=== PATIENT | female | born 1990 | race Caucasian/White ===

== ENCOUNTER 2017-04-24 15:41 | Observation (INO) | payer MEDICAID ==
[2017-04-24 16:01] LABS: URINE MUCUS NONE SEEN (Up to 25%); URINE RBC NONE SEEN (0-5/hpf); URINE WBC NONE SEEN (0-4/hpf)
[2017-04-24 16:02] LABS: BASOPHILS 0.3 % (0.0-2.0); EOSINOPHILS 0.4 % (0.0-6.0); HEMATOCRIT 33.4 % (36.0-48.0); LYMPHOCYTES 22.7 % (20.0-40.0); LYMPHOCYTES# 2.2 X 10^3uL (0.8-3.8); MEAN CELL VOLUME 86.6 fL (80.0-100.0); MEAN CORPUS. HGB CONCENTRATION 32.9 g/dL (32.0-36.0); MEAN CORPUSCULAR HEMOGLOBIN 28.5 pg (29.0-35.0); MEAN PLATELET VOLUME 8.1 fL (7.4-10.4); MONOCYTES 6.6 % (2.0-10.0); MONOCYTES# 0.6 X 10^3uL (0.2-1.0); NEUTROPHILS# 6.7 X 10^3uL (2.6-6.7); PLATELET COUNT 177 X 10^3uL (130-440); RED BLOOD COUNT 3.86 X 10^6uL (4.20-6.10); RED CELL DISTRIBUTION WIDTH 12.3 % (11.5-14.5); WHITE BLOOD COUNT 9.5 X 10^3uL (3.9-10.7)
[2017-04-24 16:09] LABS: URINE APPEARANCE SLIGHTLY CLOUDY; URINE COLOR YELLOW; URINE GLUCOSE NORMAL (NEGATIVE); URINE LEUKOCYTE ESTERASE NEGATIVE (NEGATIVE); URINE NITRITE NEGATIVE (NEGATIVE); URINE PROTEIN NEGATIVE (NEG - TRACE); URINE SPECIFIC GRAVITY < or = 1.005 (0.001-1.035)
[2017-04-24 16:10] LABS: URINE BILIRUBIN NEGATIVE (NEGATIVE); URINE BLOOD TRACE (NEGATIVE); URINE KETONE NEGATIVE (NEGATIVE); URINE SQUAMOUS EPITHELIAL CELL 0-5/hpf (<= 15/hpf); URINE UROBILINOGEN 0.2mg/dL (Normal) (NEG-1mg/dL)
[2017-04-24 16:12] LABS: ALKALINE PHOSPHATASE 102 U/L (38-126); ALT 36 U/L (9-52); AST 27 U/L (14-36); BILIRUBIN, TOTAL 0.4 mg/dL (0.2-1.3); BLOOD UREA NITROGEN 11 mg/dL (7-17); CALCIUM 8.7 mg/dL (8.4-10.2); CHLORIDE 109 mmol/L (98-107); EST GLOMERULAR FILTRATION RATE > 60 mL/min; GLUCOSE 155 mg/dL (70-100); SODIUM 134 mmol/L (137-145); URIC ACID 4.5 mg/dL (2.5-6.2)
[2017-04-24 16:27] LABS: INR 0.9; PARTIAL THROMBOPLASTIN TIME 25 sec (24-38)
[2017-04-24] MEDS ORDERED: ACETAMINOPHEN 325 MG TABLET PO PRN (17:29)
[2017-04-24] MEDS ORDERED: HOME MEDICATION LIST NEEDED 1 EA EACH MC ONE (17:29)
[2017-04-24] MEDS: BETAMET ACET/BETAMET NA PH 30 MG/5 ML VIAL IM SCH (17:46)
[2017-04-24] MEDS ORDERED: HOME MEDICATION LIST NEEDED 1 EA EACH MISC ONE (18:00)
[2017-04-25 06:21] LABS: BASOPHILS 0.1 % (0.0-2.0); MEAN CORPUSCULAR HEMOGLOBIN 28.9 pg (29.0-35.0)
[2017-04-25 06:34] LABS: EOSINOPHILS 0.1 % (0.0-6.0); HEMATOCRIT 34.2 % (36.0-48.0); HEMOGLOBIN 11.5 g/dL (12.0-16.0); LYMPHOCYTES# 1.7 X 10^3uL (0.8-3.8); MEAN CORPUS. HGB CONCENTRATION 33.7 g/dL (32.0-36.0); MEAN PLATELET VOLUME 9.7 fL (7.4-10.4); MONOCYTES 1.9 % (2.0-10.0); MONOCYTES# 0.3 X 10^3uL (0.2-1.0); RED BLOOD COUNT 3.98 X 10^6uL (4.20-6.10); RED CELL DISTRIBUTION WIDTH 12.2 % (11.5-14.5)
[2017-04-25 06:35] LABS: ALBUMIN 2.9 g/dL (3.5-5.0); BILIRUBIN, TOTAL 0.5 mg/dL (0.2-1.3)
[2017-04-25 06:57] LABS: NEUTROPHILS 85.9 % (54.0-75.0)
--- NOTE | 2017-04-25 08:05 | PROGRESS NOTE:Antepartum ---
Assessment and Plan - Date of Encounter Date of Encounter: 04/25/17 (1) Pre-eclampsia during in third trimester, antepartum Status: Acute Assessment and plan: BP improved with bedrest. Labs ok. Ultrasound for growth today. Complete steroid course later today. Current Visit: Yes - Time Spent With Patient Total time spent with greater than 50% in coordination of care (as documented) at patient's floor/unit and/or counseling patient: CLOTHING PATTERNMAKER: Antepartum PN Subj - Subjective Interval history: Rested overnight. No complaints this morning. Patient reports: appetite normal, voiding normally, no nausea Antepartum ROS: movement normal, swelling, no vaginal bleeding, no contractions, no loss of fluid, no abdominal pain, no headache, no shortness of breath, no visual changes CLOTHING PATTERNMAKER: Antepartum PN Obj Exam - Latest Vital Signs and I&O Latest Vital Signs/I&O: Vital Signs Temp 36.4 C L 04/25/17 06:30 Pulse 75 04/25/17 06:30 Resp 18 04/25/17 06:30 BP 140/70 04/25/17 06:30 Pulse Ox 95 04/25/17 06:30 Intake & Output 04/24/17 04/25/17 04/25/17 17:59 05:59 17:59 Intake Total 3000 5 Output Total 2650 400 Balance 350 -395 Weight 133.81 kg 132.449 kg Intake: IV 5 Left Hand 5 Oral 3000 Output: Urine 2650 400 Other: Urine Appearance Clear Clear Clear Urine Color Pale Yellow Yellow Yellow Voiding Method Toilet Toilet Toilet # Voids 1 - Exam Lungs: Bilateral: normal Heart Rhythm: Present: regular Extremities: Present: edema. Absent: tenderness Abdomen: Present: soft. Absent: tenderness - Lab Labs: Laboratory Last Values WBC 14.0 X 10^3uL (3.9-10.7) H 04/25/17 06:05 RBC 3.98 X 10^6uL (4.20-6.10) L 04/25/17 06:05 Hgb 11.5 g/dL (12.0-16.0) L 04/25/17 06:05 Hct 34.2 % (36.0-48.0) L 04/25/17 06:05 MCV 86.0 fL (80.0-100.0) 04/25/17 06:05 MCH 28.9 pg (29.0-35.0) L 04/25/17 06:05 MCHC 33.7 g/dL (32.0-36.0) 04/25/17 06:05 RDW 12.2 % (11.5-14.5) 04/25/17 06:05 Plt Count 186 X 10^3uL (130-440) 04/25/17 06:05 MPV 9.7 fL (7.4-10.4) 04/25/17 06:05 Neutrophils % 85.9 % (54.0-75.0) H 04/25/17 06:05 Lymphocytes % 12.0 % (20.0-40.0) L 04/25/17 06:05 Eosinophils % 0.1 % (0.0-6.0) 04/25/17 06:05 Basophils % 0.1 % (0.0-2.0) 04/25/17 06:05 Neutrophils # 12.0 X 10^3uL (2.6-6.7) H 04/25/17 06:05 Lymphocytes # 1.7 X 10^3uL (0.8-3.8) 04/25/17 06:05 Monocytes 1.9 % (2.0-10.0) L 04/25/17 06:05 Monocytes # 0.3 X 10^3uL (0.2-1.0) 04/25/17 06:05 Eosinophils # 0.0 X 10^3uL (0.0-0.4) 04/25/17 06:05 Basophils # 0.0 X 10^3uL (0.0-0.1) 04/25/17 06:05 PT 12.0 sec (13.0-16.6) L 04/24/17 15:45 INR 0.9 04/24/17 15:45 PTT 25 sec (24-38) 04/24/17 15:45 Sodium 134 mmol/L (137-145) L 04/24/17 15:45 Potassium 4.0 mmol/L (3.5-5.1) 04/24/17 15:45 Chloride 109 mmol/L (98-107) H 04/24/17 15:45 Carbon Dioxide 21 mmol/L (22-30) L 04/24/17 15:45 BUN 11 mg/dL (7-17) 04/24/17 15:45 Creatinine 0.6 mg/dL (0.5-1.0) 04/24/17 15:45 GFR Calculation > 60 mL/min 04/24/17 15:45 Glucose 155 mg/dL (70-100) H 04/24/17 15:45 Uric Acid 4.5 mg/dL (2.5-6.2) 04/24/17 15:45 Calcium 8.7 mg/dL (8.4-10.2) 04/24/17 15:45 Total Bilirubin 0.5 mg/dL (0.2-1.3) 04/25/17 06:05 Direct Bilirubin 0.0 mg/dL (0.0-0.4) 04/25/17 06:05 AST 29 U/L (14-36) 04/25/17 06:05 ALT 34 U/L (9-52) 04/25/17 06:05 Alkaline Phosphatase 104 U/L (38-126) 04/25/17 06:05 Total Protein 6.0 g/dL (6.3-8.2) L 04/25/17 06:05 Albumin 2.9 g/dL (3.5-5.0) L 04/25/17 06:05 Albumin/Globulin Ratio 1.0 04/24/17 15:45 Urine Color Yellow 04/24/17 15:45 Urine Appearance Slightly cloudy 04/24/17 15:45 Urine pH 6.0 (5-7) 04/24/17 15:45 Ur Specific [place] < or = 1.005 (0.001-1.035) 04/24/17 15:45 Urine Protein 26 mg/dL (<12) H 04/24/17 15:45 Urine Ketones Negative (NEGATIVE) 04/24/17 15:45 Urine Blood Trace (NEGATIVE) A 04/24/17 15:45 Urine Nitrate Negative (NEGATIVE) 04/24/17 15:45 Urine Bilirubin Negative (NEGATIVE) 04/24/17 15:45 Urine Urobilinogen 0.2mg/dl (normal) (NEG-1mg/dL) 04/24/17 15:45 Ur Leukocyte Esterase Negative (NEGATIVE) 04/24/17 15:45 Urine RBC None seen (0-5/hpf) 04/24/17 15:45 Urine WBC None seen (0-4/hpf) 04/24/17 15:45 Ur Squamous Epith Cells 0-5/hpf (<= 15/hpf) 04/24/17 15:45 Urine Bacteria 10-20 organisms/hpf (<10/hpf) A 04/24/17 15:45 Urine Mucus None seen (Up to 25%) 04/24/17 15:45 Urine Creatinine 14.3 mg/dL 04/24/17 15:45 Urine Glucose Normal (NEGATIVE) 04/24/17 15:45
[2017-04-25] MEDS ORDERED: PRENATAL VIT/FE FUMARATE/FA 1 TAB TABLET PO SCH (09:00)
[2017-04-25] MEDS ORDERED: VALACYCLOVIR 500 MG TABLET PO SCH (09:00)
--- NOTE | 2017-04-25 11:08 | HISTORY & PHYSICAL ---
History of Present Illness (Amandeep Jane M.D.; 04/24/2017 5:46 PM) The patient is a 26 year old female who presents to labor and delivery. She presents for evaluation of: swelling and elevated BP in the office today. The estimated gestational is 33 week. Estimated date of delivery is Date: (06/11/2017 ). This has been complicated by herpes genitalis (no outbreaks, on chronic acyclovir suppression) and obesity. The patient has complaints of edema - upper extremities and edema - lower extremities, while she denies abdominal pain, altered vision, nausea or vomiting. She denies vaginal bleeding. Urinary problems include: frequency. Habits: No tobacco, alcohol or illicit drugs since diagnosis of . Problem List/Past Medical (Amandeep Jane M.D.; 04/24/2017 5:47 PM) Genital herpes in women (A60.09) Migraine without aura and without status migrainosus, not intractable (G43.009) Allergies (Amandeep Jane M.D.; 04/24/2017 5:47 PM) No Known Drug Todatglzs16/09/2017 Family History (Amandeep Jane M.D.; 04/24/2017 5:47 PM) Alcohol Abuse Mother, Father. Cerebrovascular Accident Mother, Maternal Grandmother, Maternal Uncle. Crohn's Disease Maternal Uncle. Diabetes Mellitus Type II Father. Substance Abuse Mother, Father. Thyroid Cancer Mother. Social History (Amandeep Jane M.D.; 04/24/2017 5:47 PM) Alcohol use None. No Drug Use Tobacco use Never smoker. Medication History (Amandeep Jane M.D.; 04/24/2017 5:47 PM) Acyclovir (200MG Capsule, 1 Oral two times daily, Taken starting 03/26/2017) Active. /Folic Acid (Oral daily) Active. Medications Reconciled / History (Natalie Garza RN; 04/24/2017 3:16 PM) 1. Father of baby (1st) Jalen Brown. Past Surgical History (Amandeep Jane M.D.; 04/24/2017 5:47 PM) Arthroscopy of Shoulder Right. Review of Systems (Amandeep Jane M.D.; 04/24/2017 5:47 PM) General Not Present- Fever. Skin Not Present- Rash. HEENT Present- Headache (mild). Not Present- Bleeding Gums and Blurred Vision. Neck Not Present- Neck Stiffness. Respiratory Not Present- Difficulty Breathing. Breast Not Present- Breast Mass. Cardiovascular Not Present- Chest Pain, Fainting / Blacking Out and Shortness of Breath. Gastrointestinal Not Present- Abdominal Pain, Constipation, Nausea and Vomiting. Female Genitourinary Present- Contractions, regular, Movements Present and Frequency. Not Present- Painful Urination, Vaginal Bleeding and Vaginal Fluid. Musculoskeletal Not Present- Back Pain and Leg Cramps. Neurological Not Present- Dizziness. Psychiatric Not Present- Depression. Hematology Not Present- Bleeding Problems and DVT. Vitals (Natalie Garza RN; 04/24/2017 3:16 PM) 04/24/2017 3:16 PM BP: 160/88 (Sitting, Left Arm, Undefined) 04/24/2017 3:02 PM Weight: 295 lb LMP: 09/04/2016 BP: 160/98 (Sitting, Left Arm, Standard) Physical Exam (Amandepe Jane M.D.; 04/24/2017 5:49 PM) General General Appearance-Well Appearing and Not in acute distress. Build & Nutrition-Morbidly obese. Integumentary Integumentary General Characteristics Overall examination of the patient's skin reveals - no rashes. Head and Neck Neck Global Assessment - full range of motion, No lymphadenopathy. Thyroid Gland Characteristics - normal size and consistency and no palpable nodules. Eye Sclera/Conjunctiva - Bilateral-No Yellow. ENMT Mouth and Throat Oral Cavity/Oropharynx - Oropharynx - no evidence of airway distress observed. Chest and Lung Exam Chest and lung exam reveals -Clear and quiet, even and easy respiratory effort with no use of accessory muscles. Cardiovascular Cardiovascular examination reveals -normal heart sounds, regular rate and rhythm with no murmurs. Abdomen Inspection Inspection of the abdomen reveals - No Hernias. Contour - . Palpation/Percussion Palpation and Percussion of the abdomen reveal - Non Tender, No hepatosplenomegaly and No Palpable abdominal masses. Other Characteristics - No Costovertebral angle tenderness - Left, No Costovertebral angle tenderness - Right. Female Genitourinary Speculum & Bimanual Uterus - Characteristics - Gravid, Non Tender. Obstetric Exam Heart Tones - Present by doptone. Peripheral Vascular Lower Extremity Palpation - Tenderness - Bilateral - Non Tender. Edema - Bilateral - 3+ Pitting edema. Neurologic General Assessment of Reflexes Right Knee - 3+. Left Knee - 3+. Neuropsychiatric Mental status exam performed with findings of-Oriented X3 with appropriate mood and affect. Lymphatic Axillary Supraclavicular Nodes: Bilateral - Supraclavicular Lymph Nodes - No supraclavicular lymphadenopathy. Assessment & Plan (Amandeep Jane M.D.; 04/24/2017 5:54 PM) Preeclampsia, third trimester (O14.93) Impression: UPC 1.8 but creatinine only 14mg/dl. Labs ok. Does not meet severe criteria by BP. Discussed increased risks associated with preeclampsia and possible need for indicated delivery if she develops severe features. Will admit now for further BP monitoring, repeat labs in am, ultrasound for growth, steroids for pulmonary maturity. Understands that if delivery indicated will transfer to facility with Level III nursery. Questions answered in depth. Current Plans NON-STRESS TEST (32644) CBC, PLATELETS & AUT DIFF (23791) URIC ACID BLOOD (74965) METABOLIC PANEL, COMPREHENSIVE (55747) PTT (ACTIVATED PARTIAL THROMBOPLASTIN TIME) (49019) PT (PROTHROMBIN TIME) (79483) UA w/micro (56302) PROTEIN, URINE (87746) CREATININE, URINE (23572) Obesity during in third trimester (O99.213) Current Plans ROUTINE OBSTETRIC CARE (56253) UA Dip - OB (65045) Follow up in 2 weeks or as needed Herpes simplex infection in , first trimester (O98.511) Impression: Doing well on chronic suppression therapy. Signed by Amandeep Jane M.D. (04/24/2017 5:55 PM) NANCY
--- NOTE | 2017-04-25 11:50 | US REPORT ---
Examination demonstrates a single viable intrauterine with body , cardiac and respiratory motion identified. The biparietal diameter measures 8.5 cm. The head circumference measures 30.8 cm. The abdominal circumference measures 29.4 cm. The femur length measures 6.5 cm. These measurements indicate a gestational age of 33 weeks and 3 days with an estimated date of delivery of June 10, 2017. Estimated weight is 2225 grams. The placenta is anterior without evidence of previa The amniotic fluid is within normal limits with an index of 15.2 cm. The cervix measures 4.8 cm in length. biophysical profile is normal for all variables with a score of 10/10. IMPRESSION: 1. Single viable intrauterine with an estimated gestational age of 33 weeks and 3 days. 2. Normal biophysical profile. [facility]
[2017-04-25] MEDS ORDERED: ONDANSETRON HCL 4 MG/2 ML VIAL IV PRN (15:37)
[2017-04-25] MEDS ORDERED: CALCIUM GLUCONATE IV PRN (15:37)
[2017-04-25] MEDS ORDERED: MAGNESIUM SULFATE 1,000 ML IV SCH (15:45)
[2017-04-25] MEDS ORDERED: MAGNESIUM SULFATE 4 GM/100 ML BAG IV ONE (15:46)
[2017-04-25] MEDS ORDERED: CALCIUM GLUCONATE IV ONE (15:48)
[2017-04-25] MEDS ORDERED: LACTATED RINGERS 1,000 ML IV ONE (15:51)
[2017-04-25] MEDS ORDERED: LACTATED RINGERS 1,000 ML IV SCH (16:00)
--- NOTE | 2017-04-25 16:05 | DC SUMMARY: Obstetrical/GYN ---
Discharge Summary: Surg/OB Provider: Date of Admission: 04/24/17 Admitting Provider: TOM BREWSTER MD Attending Provider: TOM BREWSTER MD Discharging Provider: TOM BREWSTER MD Primary Care Provider: Discharge Date: 04/25/17 - Diagnosis (1) Pre-eclampsia during in third trimester, antepartum Status: Acute Hospital Course: Ms. INIGUEZ is a 26 year old female admitted on Saturday for evaluation of hypertension in . Her BP's improved with bedrest but today she has had persistently elevated pressures and now meets severe criteria based on systolic BP>160 on in hospital bedrest. Ultrasound this morning revealed normal growth, Amniotic fluid and BPP 10/10. She has no headache or scotomata and her labs show no evidence of HELLP syndrome. Due to her gestational age she was begun on steroids yesterday on admission. Due to worsening HTN and gestational age recommend transfer to facility with Level III nursery. Patient understands and agrees. Case discussed with Dr. Mandy Crain at [facility] and she agrees to accept patient. Discharge - Patient/Caregiver Discharge Instructions Activity Level: Bedrest Overall discharge status: other (Gaurded) Disposition: [facility] Obstetrical/WATCH CRYSTAL GRINDER Discharge Exam - Latest Vital Signs and I&O Latest Vital Signs/I&O: Vital Signs Temp 36.6 C 04/25/17 10:45 Pulse 80 04/25/17 14:46 Resp 18 04/25/17 10:45 BP 177/81 04/25/17 14:46 Pulse Ox 97 04/25/17 10:52 Intake & Output 04/24/17 04/25/17 04/25/17 17:59 05:59 17:59 Intake Total 3000 1205 Output Total 2650 1999 Balance 350 -795 Weight 133.81 kg 132.449 kg Intake: IV 5 Left Hand 5 Oral 3000 1200 Output: Urine 2650 1999 Other: Urine Appearance Clear Clear Clear Urine Color Pale Yellow Yellow Yellow Voiding Method Toilet Toilet Toilet # Voids 1 - Exam Heart Monitor: category I Lungs: Bilateral: normal Heart Rhythm: Present: regular Extremities: Present: edema. Absent: tenderness Abdomen: Present: soft. Absent: tenderness Discharge Summary Data - Medication History Medication History: Home Medications Acyclovir [Acyclovir*] 200 mg PO BID 04/25/17 Prena1 Chew Tablet 1 tab PO BID 04/25/17 aspirin EC [Aspirin EC*] 81 mg PO DAILY 04/25/17 Inpatient Medications 04/24/17 17:29 Acetaminophen [Tylenol] 650 mg PO Q6H PRN 04/24/17 18:00 Betamet Acet/Betamet Na pH [Celestone] 12 mg IM Q24H 04/25/17 09:00 Vit/Fe Fumarate/FA [ Rx 1] 1 tab PO DAILY Valacyclovir [Valtrex] 500 mg PO DAILY 04/25/17 15:37 Calcium Gluconate 10% [Calcium Gluconate 1000 mg] 1,000 mg IV PRN PRN Ondansetron HCl [Zofran] 4 mg IV Q4H PRN 04/25/17 15:45 Magnesium Sulfate [Magnesium Sulfate 40Gm/1000ML] 1,000 ml IV CONT 04/25/17 16:00 Lactated Ringers [Lr 1000 ml Bag] 1,000 ml IV CONT Procedures and tests throughout hospitalization: Completed Lab Orders 04/24/17 15:45 CBC AUTO DIF, MDIF/RMOR IF IND [HEM] Stat COMPREHENSIVE METABOLIC PANEL [CHEM] Stat PARTIAL THROMBOPLASTIN TIME [HEM] Stat PROTIME/INR [HEM] Stat UA W/ MICRO -CULTURE IF IND [URINE] Stat URIC ACID [CHEM] Stat URINE CREATININE,RANDOM [CHEM] Stat URINE PROTEIN,RANDOM [CHEM] Stat 04/25/17 06:05 CBC AUTO DIF, MDIF/RMOR IF IND [HEM] AMDRAW HEPATIC PANEL [CHEM] AMDRAW Completed Imaging Orders 04/25/17 17:30 US BIOPHY PROFW/[id number] [US] Routine US OB FOLLOW-UP [id number] [US] Routine Pending Orders 04/24/17 15:45 URINE CULTURE [RM] Routine 04/24/17 17:29 Admit: Observation Routine Activity: Bathroom Privileges . Assess pulse oximetry ROOM AIR (DAILY) Intake and Output QSHIFT I&O Obtain weight 0600 Resuscitation Status Routine Vital Signs ROUTINE VITALS (Q4H) Acetaminophen [Tylenol] 650 mg PO Q6H PRN 04/24/17 17:32 Urine dipstick for protein q4h Q4H 04/24/17 17:33 Monitor PER PROTOCOL 04/24/17 18:00 Betamet Acet/Betamet Na pH [Celestone] 12 mg IM Q24H 04/24/17 Dinner Regular [DIET] 04/25/17 09:00 Vit/Fe Fumarate/FA [ Rx 1] 1 tab PO DAILY Valacyclovir [Valtrex] 500 mg PO DAILY 04/25/17 15:37 Activity: Bedrest with BRP CONTINUOUS Assess deep tendon reflexes Q1H CBC, CMP 12h after admit if un . Decrease sensory input . Insert Pires Catheter ONCE Intake and Output Q1H Mag level 4h after bolus, q6h . [facility] Maternal Vital Signs PER PROTOCOL Notify Physician . Obtain weight 2100 Sips and Chips . Urine dipstick for protein q4h Q4H Calcium Gluconate 10% [Calcium Gluconate 1000 mg] 1,000 mg IV PRN PRN Ondansetron HCl [Zofran] 4 mg IV Q4H PRN 04/25/17 15:45 Magnesium Sulfate [Magnesium Sulfate 40Gm/1000ML] 1,000 ml IV CONT 04/25/17 16:00 Lactated Ringers [Lr 1000 ml Bag] 1,000 ml IV CONT 04/25/17 Dinner Nothing By Mouth [DIET] Labs on day of discharge: Labs from last 24 hours 04/25/17 04/24/17 04/24/17 06:05 15:45 15:45 WBC 14.0 H RBC 3.98 L Hgb 11.5 L Hct 34.2 L MCV 86.0 MCH 28.9 L MCHC 33.7 RDW 12.2 Plt Count 186 MPV 9.7 Neutrophils % 85.9 H Lymphocytes % 12.0 L Eosinophils % 0.1 Basophils % 0.1 Neutrophils # 12.0 H Lymphocytes # 1.7 Monocytes 1.9 L Monocytes # 0.3 Eosinophils # 0.0 Basophils # 0.0 PT INR PTT Sodium Potassium Chloride Carbon Dioxide BUN Creatinine GFR Calculation Glucose Uric Acid Calcium Total Bilirubin 0.5 Direct Bilirubin 0.0 AST 29 ALT 34 Alkaline Phosphatase 104 Total Protein 6.0 L Albumin 2.9 L Albumin/Globulin Ratio Urine Color Yellow Urine Appearance Slightly cloudy Urine pH 6.0 Ur Specific [place] < or = 1.005 Urine Protein 26 H Negative Urine Ketones Negative Urine Blood Trace A Urine Nitrate Negative Urine Bilirubin Negative Urine Urobilinogen 0.2mg/dl (normal) Ur Leukocyte Esterase Negative Urine RBC None seen Urine WBC None seen Ur Squamous Epith Cells 0-5/hpf Urine Bacteria 10-20 organisms/hpf A Urine Mucus None seen Urine Creatinine 14.3 Urine Glucose Normal 04/24/17 15:45 WBC 9.5 RBC 3.86 L Hgb 11.0 L Hct 33.4 L MCV 86.6 MCH 28.5 L MCHC 32.9 RDW 12.3 Plt Count 177 MPV 8.1 Neutrophils % 70.0 Lymphocytes % 22.7 Eosinophils % 0.4 Basophils % 0.3 Neutrophils # 6.7 Lymphocytes # 2.2 Monocytes 6.6 Monocytes # 0.6 Eosinophils # 0.0 Basophils # 0.0 PT 12.0 L INR 0.9 PTT 25 Sodium 134 L Potassium 4.0 Chloride 109 H Carbon Dioxide 21 L BUN 11 Creatinine 0.6 GFR Calculation > 60 Glucose 155 H Uric Acid 4.5 Calcium 8.7 Total Bilirubin 0.4 Direct Bilirubin AST 27 ALT 36 Alkaline Phosphatase 102 Total Protein 6.0 L Albumin 3.0 L Albumin/Globulin Ratio 1.0 Urine Color Urine Appearance Urine pH Ur Specific [place] Urine Protein Urine Ketones Urine Blood Urine Nitrate Urine Bilirubin Urine Urobilinogen Ur Leukocyte Esterase Urine RBC Urine WBC Ur Squamous Epith Cells Urine Bacteria Urine Mucus Urine Creatinine Urine Glucose Preliminary micro results at discharge 04/24/17 15:45 Urine Culture - Preliminary Urine,Unspecified NO GROWTH TO DATE
[2017-04-25 16:15] VITALS: TEMP 98.4
[2017-04-25] MEDS: LABETALOL HCL 100 MG/20 ML VIAL IV PRN ×2 (16:55→17:41)
[2017-04-25] MEDS ORDERED: LABETALOL HCL 100 MG/20 ML VIAL IV ONE (17:02)
[2017-04-25] MEDS: BETAMET ACET/BETAMET NA PH 30 MG/5 ML VIAL IM SCH (17:04)
[2017-04-25 18:19] VITALS: RESP 18
[2017-04-25 18:33] VITALS: BP 125/68; PULSE 85; O2SAT 98
== END 2017-04-25 17:15 | disposition short-term general hospital (02) ==
LOC: NLCPRO 15:41 → NLC 17:00
PROVIDERS: ADMIT Obstetrics & Gynecology; ATTEND Obstetrics & Gynecology
DX: O14.93 Unspecified pre-eclampsia, third trimester (principal); O99.213 Obesity complicating pregnancy, third trimester; O98.511 Other viral diseases complicating pregnancy, first trimester
CPT/HCPCS: 36415; 51702; 59025; 76816; 76818; 80053; 80076; 81001; 82570; 84156; 84550; 85025; 85610; 85730; 87086; 96365; 96366; 96374; 96375; G0378; J0610; J0702; J2405; J7120